=== PATIENT | female | born 1985 | race Caucasian/White ===

== ENCOUNTER 2018-10-26 15:05 | Emergency (ER) | payer OTHER ==
[~2018-10-26] VITALS: Ht 165.1 cm; Wt 79.4 kg
[~2018-10-26 15:05] MED LIST: CYMBALTA60 MG PO; MOBIC7.5 M1 PO; PHENERGAN 25 MG25 M1 PO; SINGULAIR 10 MG10 MG PO; TESSALON200 MG PO; TRAMADOL 50 MG50 MG PO; VICODIN 5-5001 EACH PO; XANAX 0.5 MG0.5 MG PO
[2018-10-26] MEDS ORDERED: PROTONIX40 M1 PO (15:21)
[2018-10-26] MEDS ORDERED: REQUIP XL2 MG PO (15:22)
[2018-10-26] MEDS ORDERED: LIORESAL 10 MG10 MG PO (15:22)
[2018-10-26] MEDS ORDERED: TOPAMAX50 MG PO (15:22)
[2018-10-26] MEDS ORDERED: PROZAC40 MG PO (15:22)
[2018-10-26] MEDS ORDERED: NORCO 7.5-3251 EACH PO (15:22)
[2018-10-26] MEDS ORDERED: ALLEGRA ALLERGY60 MG PO (15:22)
[2018-10-26] MEDS ORDERED: ADDERALL 15 MG15 MG PO (15:23)
[2018-10-26] MEDS ORDERED: NORCO 5-325 TA1 EAC1 PO (17:03)
[2018-10-26 17:23] VITALS: BP 130/81
== END 2018-10-26 17:25 | disposition home or self-care (01) ==
LOC: M.ERS 15:05
DX: S93.491A Sprain of other ligament of right ankle, initial encounter (principal); S93.492A Sprain of other ligament of left ankle, initial encounter; S39.012A Strain of muscle, fascia and tendon of lower back, initial encounter; G25.81 Restless legs syndrome; F41.9 Anxiety disorder, unspecified; F32.9 Major depressive disorder, single episode, unspecified; Z87.442 Personal history of urinary calculi; Z90.710 Acquired absence of both cervix and uterus; Z90.49 Acquired absence of other specified parts of digestive tract; Z88.0 Allergy status to penicillin; W10.8XXA Fall (on) (from) other stairs and steps, initial encounter; Y93.89 Activity, other specified; Y92.89 Other specified places as the place of occurrence of the external cause; Y99.8 Other external cause status

== ENCOUNTER 2019-02-16 20:38 | Inpatient (IN) | payer OTHER ==
[~2019-02-16] VITALS: Ht 165.1 cm; Wt 90.3 kg
[~2019-02-16 20:38] MED LIST changes: +ADDERALL 15 MG15 MG PO; +ALLEGRA ALLERGY60 MG PO; +LIORESAL 10 MG10 MG PO; +NORCO 5-325 TA1 EAC1 PO; +NORCO 7.5-3251 EACH PO; +PROTONIX40 M1 PO; +PROZAC40 MG PO; +REQUIP XL2 MG PO; +TOPAMAX50 MG PO
[2019-02-16 20:53] VITALS: BP 129/108
[2019-02-16] MEDS ORDERED: TIZANIDINE HCL4 M1 PO (20:55)
[2019-02-16] MEDS ORDERED: GABAPENTIN600 M1 PO (20:55)
[2019-02-16 21:27] LABS: ABSOLUTE LYMPHOCYTES 2.1 thou/uL (0.8-5.3); ABSOLUTE MONOCYTES 0.4 thou/uL (0.0-1.2); ABSOLUTE NEUTROPHILS 4.4 thou/uL (1.6-8.1); BASOPHILS 0.7 %; EOSINOPHILS 0.4 %; HEMATOCRIT 36.6 % (37.0-47.0); HEMOGLOBIN 12.8 gm/dL (12.0-15.0); LYMPHOCYTES 30.5 %; MCH 30.2 pg (26.0-34.0); MCHC 35.1 g/dL (28.0-37.0); MCV 86.2 fL (80.0-100.0); MONOCYTES 5.9 %; NUCLEATED RBCS 0 /100WBC; PLATELET COUNT* 221 thou/uL (150-400); POLYS 62.5 %; RBC 4.24 mil/uL (4.20-5.00); RDW-CV 12.3 % (10.5-14.5); WBC 7.1 thou/uL (4.0-11.0)
[2019-02-16 21:34] LABS: CALCIUM 8.1 mg/dL (8.5-10.1); CREATININE 0.8 mg/dL (0.6-1.3); POTASSIUM 3.6 mmol/L (3.5-5.1)
[2019-02-16 21:39] LABS: ALBUMIN 3.7 g/dL (3.4-5.0); TOTAL BILIRUBIN 0.1 mg/dL (<0.1-1.0); TOTAL PROTEIN 6.8 g/dL (6.4-8.2)
[2019-02-16 21:58] LABS: URINE BILIRUBIN NEGATIVE (Negative); URINE BLOOD 3+ (Negative); URINE CLARITY CLEAR; URINE COLOR YELLOW; URINE GLUCOSE-RANDOM NEGATIVE (Negative); URINE KETONES NEGATIVE (Negative); URINE LEUKOCYTES-REFLEX NEGATIVE (Negative); URINE NITRITE-REFLEX NEGATIVE (Negative); URINE PROTEIN NEGATIVE (Negative); URINE UROBILINOGEN 0.2 E.U./dl (0.2-1.0)
[2019-02-16 22:12] LABS: BACTERIA-REFLEX 1-9 Few /HPF (None Seen); CASTS None Seen /LPF (None Seen); CRYSTALS None Seen /LPF (None Seen); MUCUS 0-3 Light strn/LPF (None Seen); SQUAMOUS 0-3 Few /LPF (0-3); URINE RBC >20 Many /HPF (0-2); URINE WBC-REFLEX None Seen /HPF (0-5)
[2019-02-17] VITALS (7 sets, daily range): BP systolic 81–125; BP diastolic 31–70
[2019-02-18 04:22] LABS: HEMATOCRIT 32.9 % (37.0-47.0); HEMOGLOBIN 11.5 gm/dL (12.0-15.0); MCH 30.8 pg (26.0-34.0); MCHC 34.9 g/dL (28.0-37.0); MCV 88.1 fL (80.0-100.0); MPV 8.8 fl. (7.2-11.1); RBC 3.74 mil/uL (4.20-5.00); RDW-CV 12.4 % (10.5-14.5); WBC 4.6 thou/uL (4.0-11.0)
[2019-02-18 04:35] LABS: MAGNESIUM 1.8 mg/dL (1.8-2.4); POTASSIUM 3.8 mmol/L (3.5-5.1)
[2019-02-18 08:26] VITALS: BP 106/55
[2019-02-18 16:16] VITALS: BP 106/55
[2019-02-18 20:00] VITALS: BP 155/78
[2019-02-19 08:42] VITALS: BP 110/68
--- NOTE | 2019-02-20 14:30 | OP ---
[address] [address] OPERATIVE REPORT Name: INESSA BENOIT Room: [address] [place] .R.#: [id number] Admission: 02/16/19 Attend Phys: Yane Darden MD Discharge: 02/19/19 Date of : 85 Report #: [id number] THIS REPORT FOR: //name// CC: Kye Darden DATE OF SERVICE: 02/18/2019 INDICATION FOR PROCEDURE: The patient is a 33-year-old female who was admitted through the Emergency Department due to severe flank pain associated with nausea and vomiting. Evaluation revealed 2 right ureteral calculi measuring 2-3 mm in size each and multiple bilateral renal stones. On the right side, there were 5-[address] scan, largest measured approximately 6-7 mm in size. There were few smaller ones noted. After discussing treatment options in detail, she presents for cystoscopy, right retrograde pyelogram, right ureteroscopic stone extraction with holmium laser lithotripsy and stent `placement. PREOPERATIVE DIAGNOSES: Right ureteral and renal calculi. POSTOPERATIVE DIAGNOSES: Right ureteral and renal calculi. PROCEDURE: Cystoscopy, right retrograde pyelogram, right ureteroscopic stone extraction with holmium laser lithotripsy, right double-J stent placement. SURGEON: Peyman Gonzalez MD ANESTHESIA: General. COMPLICATIONS: None. ESTIMATED BLOOD LOSS: Minimal. PROCEDURE IN DETAIL: The patient was consented for the above procedure. She was given broad spectrum IV antibiotics preoperatively. She was given general anesthetic, placed in the dorsal lithotomy position. She was prepped and draped in the usual sterile fashion over the genitalia. The ureteral stones were not easily visualized on fluoroscopy; however, the larger renal stones were seen. Cystoscopy was performed with a 22-Par[place]ayan sheath and 30 degree lens, which revealed no evidence of stones within the bladder itself. The bladder was otherwise unremarkable and ureteral orifices were seen in the proper position. Right retrograde pyelogram was performed with a 5-Paraguayan Pollack catheter and half strength Omnipaque, which revealed a normal distal ureter. The entire ureter did not have evidence of hydronephrosis and a filling defect was not well visualized in the ureter on retrograde pyelogram. However, upon attempting guidewire passage on the right side, the stone [place] [address] OPERATIVE REPORT Name: INESSA BENOIT Room: [address]#: [id number] Admission: 02/16/19 Attend Phys: Yane Darden MD Discharge: 02/19/19 Date of : 85 Report #: [id number] ureter as it was difficult to get the wire to go beside the stone. Using a combination of Pollack catheter and the guidewire, I was able to get the wire past the stone up into the renal pelvis under fluoroscopic guidance. With the wire in place, the scope was removed and then an 11/13 Par[place]ayan ureteral access sheath was passed over the wire and into the mid ureter under fluoroscopic guidance without difficulty. The trocar and wire were removed leaving the sheath in place. Flexible ureteroscope was used to perform ureteroscopy. These stones were identified in the proximal ureter and were fairly large, so the 200 micron holmium laser was used to fragment the stones in the ureter until they got small enough that they washed back up into the renal pelvis. They were then trapped into a middle pole junior along a very large stone that was also in this junior and the laser was used to fragment all stones into a removable size pieces. The larger of which were removed with a 0 tip nitinol stone basket. Several small stones remained and were too small to basket, but should be of a passable size. Two other calcifications were seen on fluoroscopy, but upon thorough inspection of the collecting system, I was not able to gain access to any of the other stones. I examined every junior that I could access with the ureteroscope and was not able to find any other calcifications. Once I was comfortable with the size of the residual fragments, I elected to halt the procedure. The ureteroscope was removed. The guidewire was passed back up the access sheath under fluoroscopic guidance. The access sheath was then removed leaving the guidewire in place and a 4.8 x 26 double-J stent was passed over the wire with good curl noted in the renal pelvis and in the bladder. This position was confirmed with fluoroscopy and cystoscopy. The bladder was drained, the scope was removed. Lidocaine gel was placed per urethra. The patient was awakened and sent to recovery room where she remained in stable condition. We will leave this stent in place for approximately 1 week. Plan a KUB in the office prior to stent removal. The stones that were collected will be sent off for stone analysis. <ELECTRONICALLY SIGNED> By: Peyman Gonzalez MD 02/20/19 1430 [id number] [id number] Gonzalez MD /emilie
== END 2019-02-19 11:21 | disposition home or self-care (01) | DRG 661 ==
LOC: M.ERS 20:38 → M.ORTHSURG 23:06 → M.TBA-ER 23:06 → M.ORTHSURG 02-17 16:20
PROVIDERS: Nurse Practitioner Family; ADMIT Internal Medicine
DX: N13.2 Hydronephrosis with renal and ureteral calculous obstruction (principal); R31.29 Other microscopic hematuria; G25.81 Restless legs syndrome; F32.9 Major depressive disorder, single episode, unspecified; J45.909 Unspecified asthma, uncomplicated; F41.9 Anxiety disorder, unspecified; Z96.0 Presence of urogenital implants; Z90.49 Acquired absence of other specified parts of digestive tract; Z87.442 Personal history of urinary calculi; Z79.899 Other long term (current) drug therapy; Z88.0 Allergy status to penicillin; Z90.710 Acquired absence of both cervix and uterus; Z72.89 Other problems related to lifestyle; Z84.1 Family history of disorders of kidney and ureter; Z28.21 Immunization not carried out because of patient refusal

== ENCOUNTER 2019-09-16 22:19 | Emergency (ER) | payer OTHER ==
[~2019-09-16] VITALS: Ht 165.1 cm; Wt 86.2 kg
[~2019-09-16 22:19] MED LIST changes: +GABAPENTIN600 M1 PO; +TIZANIDINE HCL4 M1 PO
[2019-09-16] MEDS ORDERED: FLEXERIL PO (22:41)
[2019-09-16] MEDS ORDERED: AJOVY225 MG/1.5 SUBQ (22:41)
[2019-09-17 00:48] LABS: URINE BILIRUBIN NEGATIVE (Negative); URINE BLOOD 3+ (Negative); URINE CLARITY CLEAR; URINE COLOR YELLOW; URINE GLUCOSE-RANDOM NEGATIVE (Negative); URINE KETONES NEGATIVE (Negative); URINE LEUKOCYTES-REFLEX NEGATIVE (Negative); URINE NITRITE-REFLEX NEGATIVE (Negative); URINE PROTEIN NEGATIVE (Negative); URINE SPECIFIC GRAVITY 1.015 (1.005-1.030); URINE UROBILINOGEN 0.2 E.U./dl (0.2-1.0)
[2019-09-17 00:55] LABS: AMP/METHAMP POSITIVE (Negative); BARBITURATES Negative (Negative); BENZODIAZEPINES Negative (Negative); COCAINE Negative (Negative); METHADONE Negative (Negative); OPIATES POSITIVE (Negative); PCP Negative (Negative); THC Negative (Negative)
[2019-09-17 01:58] LABS: CASTS None Seen /LPF (None Seen); SQUAMOUS >10 Many /LPF (0-3)
[2019-09-17 01:59] LABS: BACTERIA-REFLEX None Seen /HPF (None Seen); CRYSTALS None Seen /LPF (None Seen); URINE RBC >20 Many /HPF (0-2); URINE WBC-REFLEX 0-5 Rare /HPF (0-5)
[2019-09-17] MEDS ORDERED: ZOFRAN ODT4 MG PO (03:10)
[2019-09-17] MEDS ORDERED: FLOMAX0.4 MG PO (03:10)
[2019-09-17] MEDS ORDERED: PERCOCET 7.5-31 EAC1 PO (03:10)
[2019-09-17 03:48] VITALS: BP 122/67
== END 2019-09-17 03:48 | disposition home or self-care (01) ==
LOC: M.ERS 22:19
PROVIDERS: Emergency Medicine; Nurse Practitioner Family
DX: N23 Unspecified renal colic (principal); F41.9 Anxiety disorder, unspecified; F32.9 Major depressive disorder, single episode, unspecified; Z87.442 Personal history of urinary calculi; Z90.710 Acquired absence of both cervix and uterus; Z90.49 Acquired absence of other specified parts of digestive tract; Z88.0 Allergy status to penicillin